=== PATIENT | male | born 1980 | race Caucasian/White ===

== ENCOUNTER 2017-11-02 23:37 | Emergency (ER) | payer SELFPAY ==
[2017-11-03] MEDS ORDERED: Clindamycin/D5W 600 mg/50 ml Premix Bag ONE (00:26)
[2017-11-03 00:57] LABS: #Basophils 0.1 thou/uL (0.0-0.2); #Eosinphils 0.1 thou/uL (0.0-0.7); #Lymphocytes 1.7 thou/uL (1.20-3.40); #Monocytes 0.8 thou/uL (0.11-0.59); #Neutrophils 6.2 thou/uL (1.40-6.50); %Basophils 0.6 % (0.0-1.0); %Eosinophils 1.4 % (0.0-10.0); %Lymphocytes 18.8 % (21.0-51.0); %Monocytes 8.6 % (0.0-10.0); %Neutrophils 70.7 % (42.0-75.0); Hemoglobin 16.5 g/dL (14.0-18.0); Mean Corpuscular HGB CONC 33.5 g/dL (32.0-36.0); Mean Corpuscular Hemoglobin 32.8 pg (27.0-31.0); Mean Corpuscular Volume 97.9 fl (80.0-94.0); Mean Platelet Volume 8.2 fL (7.4-10.4); Platelet Count 156 thou/uL (130-400); RBC Distribution Width 11.6 % (11.5-14.5); Red Blood Cell (RBC) Count 5.03 mill/uL (4.70-6.10); White Blood Cell (WBC) Count 8.8 thou/uL (4.8-10.8)
--- NOTE | 2017-11-03 10:48 | RAD ---
RIGHT HAND 3 VIEWS: Date 11/03/17 HISTORY: Right hand injury. Bite wound. FINDINGS: Soft tissue swelling about the ring finger is apparent. No acute fracture, dislocation, or radiopaque foreign bodies. IMPRESSION: Soft tissue swelling. No acute osseous abnormalities are demonstrated. POS: [facility]
== END 2017-11-03 01:48 | disposition home or self-care (01) ==
LOC: ERS 23:37
DX: S61.234A Puncture wound without foreign body of right ring finger without damage to nail, initial encounter (principal); L03.113 Cellulitis of right upper limb; E66.9 Obesity, unspecified; F17.210 Nicotine dependence, cigarettes, uncomplicated; W57.XXXA Bitten or stung by nonvenomous insect and other nonvenomous arthropods, initial encounter
CPT/HCPCS: 85025; 96374; J3490

== ENCOUNTER 2017-11-04 19:47 | Inpatient (IN) | payer OTHER, SELFPAY ==
[2017-11-04] MEDS ORDERED: HYDROcodone/Acetaminophen 5/325 mg Tablet ONE (21:49)
--- NOTE | 2017-11-04 21:58 | RAD ---
RIGHT HAND THREE VIEWS: 11/04/2017 HISTORY: Ring finger swelling. Spider bite on right hand. Open wound. FINDINGS: There is no evidence of a fracture, dislocation, or other osseous abnormality involving the right ghotra d. There is subcutaneous soft tissue swelling involving the right ring finger. There is no osseous destruction seen. IMPRESSION: Subcutaneous soft tissue swelling, right ring finger. No acute osseous abnormality is seen. If ther e is concern for osteomyelitis, MRI would be a more sensitive study of choice for evaluation. POS: [facility]
[2017-11-04 22:32] LABS: #Basophils 0.1 thou/uL (0.0-0.2); #Eosinphils 0.2 thou/uL (0.0-0.7); #Lymphocytes 1.2 thou/uL (1.20-3.40); #Monocytes 0.7 thou/uL (0.11-0.59); #Neutrophils 7.3 thou/uL (1.40-6.50); %Basophils 0.7 % (0.0-1.0); %Eosinophils 2.6 % (0.0-10.0); %Monocytes 7.4 % (0.0-10.0); %Neutrophils 76.4 % (42.0-75.0); Hemoglobin 14.2 g/dL (14.0-18.0); Mean Corpuscular HGB CONC 34.3 g/dL (32.0-36.0); Mean Corpuscular Hemoglobin 33.1 pg (27.0-31.0); Mean Corpuscular Volume 96.5 fl (80.0-94.0); Mean Platelet Volume 7.6 fL (7.4-10.4); Platelet Count 194 thou/uL (130-400); RBC Distribution Width 11.7 % (11.5-14.5); Red Blood Cell (RBC) Count 4.27 mill/uL (4.70-6.10); White Blood Cell (WBC) Count 9.5 thou/uL (4.8-10.8)
[2017-11-04 22:39] LABS: PTT 29.8 SEC (22.9-36.1); Prothrombin Time 12.8 SEC (12.0-14.7)
[2017-11-04 23:05] LABS: ALT (SGPT) 76 U/L (8-55); AST (SGOT) 101 U/L (5-34); Albumin 3.6 g/dL (3.5-5.0); Alkaline Phosphatase 125 U/L (40-150); Anion Gap 13 mmol/L (10-20); BUN (Urea Nitrogen) 12 mg/dL (8.9-20.6); Bilirubin, Total 0.4 mg/dL (0.2-1.2); CK (CPK) 1719 U/L (30-200); Calc. Creatinine Clearance 0 mL/min (70-130); Calcium 9.2 mg/dL (7.8-10.44); Carbon Dioxide 25 mmol/L (22-29); Chloride 104 mmol/L (98-107); Estimated GFR-MDRD Greater than 90; Globulin 2.8 g/dL (2.4-3.5); Glucose 95 mg/dL (70-105); Potassium 3.9 mmol/L (3.5-5.1); Protein, Total 6.4 g/dL (6.0-8.3); Sodium 138 mmol/L (136-145)
[2017-11-05] MEDS ORDERED: Piperacillin/Tazobactam 4.5 GM VIAL ONE (00:12)
[2017-11-05] MEDS ORDERED: Acetaminophen 325 MG TAB PO PRN (00:37)
[2017-11-05] MEDS ORDERED: Ondansetron HCl/PF 4 MG/2 ML Vial IVP PRN ×2 (00:37→21:56)
[2017-11-05] MEDS ORDERED: Ondansetron ODT 4 MG TAB SL PRN (00:37)
[2017-11-05 00:39] VITALS: BMI 24.1
[2017-11-05] MEDS ORDERED: Piperacillin/Tazobactam 4.5 GM in Sodium Chloride 0.9% 100 ML IVPB SCH (02:15)
[2017-11-05] MEDS: Dextrose 5 %-0.45 % NaCl 1,000 ML IV SCH ×2 (03:07→15:03)
[2017-11-05] MEDS: Ketorolac Tromethamine 30 MG/ML VIAL IVP PRN (14:08)
[2017-11-05] MEDS ORDERED: VANCOMYCIN/RENALLY ADJUST ABX IVPB PRN (16:37)
[2017-11-05] MEDS ORDERED: Vancomycin HCl 1 GM in Premix Bag 1 BAG IVPB SCH (16:45)
[2017-11-05] MEDS: traMADol HCl 50 MG TAB PO PRN ×2 (18:03→22:36)
[2017-11-05] MEDS: Vancomycin HCl 1.5 GM in Sodium Chloride 0.9% 250 ML 300 ML IVPB SCH (18:11)
[2017-11-05] MEDS: Sodium Chloride 0.9% 1,000 ML IV SCH ×2 (18:13→20:14)
[2017-11-05] MEDS: Piperacillin/Tazobactam 3.375 GM in Sodium Chloride 0.9% 100 ML IVPB SCH (20:14)
[2017-11-05] MEDS: Acetaminophen 325 MG TAB PO PRN (20:15)
[2017-11-05] MEDS ORDERED: Milk Of Magnesia 30 ML UDCUP PO PRN (21:56)
[2017-11-05] MEDS ORDERED: Calcium Carbonate 500 MG ChewTAB PO PRN (21:56)
[2017-11-05] MEDS ORDERED: Ondansetron ODT 4 MG TAB PO PRN (21:56)
[2017-11-05] MEDS ORDERED: Senokot 8.6 MG TAB PO PRN (21:56)
--- NOTE | 2017-11-05 21:56 | PDOC.PN ---
- Subjective Encounter Start Date: 11/05/17 Encounter Start Time: 14:00 Patient seen and examined. Consult for med mngt. No CP/SOB/fever. Has 10/10 pain in Rt hand. - Objective MAR Reviewed: Yes Vital Signs & Weight: Vital Signs (12 hours) Temp Pulse Resp BP Pulse Ox 11/05/17 20:00 98.9 F 99 16 109/70 97 11/05/17 15:32 98.3 F 78 16 115/70 99 11/05/17 11:42 98.5 F 80 14 103/66 98 Weight Weight 177 lb 14.609 oz I&O: 11/04/17 11/05/17 11/06/17 06:59 06:59 06:59 Intake Total 600 100 Output Total 800 Balance -200 100 Result Diagrams: 11/06/17 03:41 11/06/17 03:41 Phys Exam - Physical Examination Constitutional: NAD Respiratory: no wheezing, no rhonchi Cardiovascular: RRR, no rub Gastrointestinal: soft, non-tender, positive bowel sounds Musculoskeletal: no edema Rt hand dressing + Neurological: non-focal Psychiatric: A&O x 3 Dx/Plan - Plan DVT proph w/SCDs IMPRESSION: 1. Rt hand celulitis/abscess 2. Rhabdomyolysis 3. Tobacco dep 4. Cannabis abuse 5. Acute pain due to #1 PLAN: * Patient is allergic to Cefaclor - Tolerated Zosyn in ER. * Will cont Zosyn * Cont Vancomycin * AM labs * Cont IVF NS @ 125 ml/hr Review of Systems - Review of Systems Respiratory: negative: Cough, Dry, Shortness of Breath, Hemoptysis, SOB with Excertion, Pleuritic Pain, Sputum, Wheezing Cardiovascular: negative: chest pain, palpitations, orthopnea, paroxysmal nocturnal dyspnea, edema, light headedness, other Gastrointestinal: negative: Nausea, Vomiting, Abdominal Pain, Diarrhea, Constipation, Melena, Hematochezia, Other Genitourinary: negative: Dysuria, Frequency, Incontinence, Hematuria, Retention , Other - Medications/Allergies Allergies/Adverse Reactions: Allergies Allergy/AdvReac Type Severity Reaction Status Date / Time cefaclor [From [facility]] Allergy Severe Verified 11/05/17 06:52 Medications: Current Medications Acetaminophen (Tylenol) 650 mg PO Q4H PRN PRN Reason: Headache/Fever or Mild Pain Last Admin: 11/05/17 20:15 Dose: 650 mg Sodium Chloride (Normal Saline 0.9%) 1,000 mls @ 125 mls/hr IV .Q8H [facility]ARIEL Last Admin: 11/05/17 20:14 Dose: 1,000 mls Piperacillin Sod/Tazobactam (Sod 3.375 gm/ Sodium Chloride) 100 mls @ 200 mls/ hr IVPB 0200,0800,1400,2000 [facility] Last Admin: 11/05/17 20:14 Dose: 100 mls Vancomycin HCl 1.5 gm/ Sodium (Chloride) 300 mls @ 200 mls/hr IVPB 0200,1000, 1800 [facility] Last Admin: 11/05/17 18:11 Dose: 300 mls Ibuprofen (Motrin) 400 mg PO Q6H PRN PRN Reason: Mild Pain (1-3) Ketorolac Tromethamine (Toradol) 15 mg IVP Q6H PRN PRN Reason: Pain Stop: 11/10/17 02:05 Last Admin: 11/05/17 14:08 Dose: 15 mg Miscellaneous Medication (Pharmacy To Dose) 1 each IVPB PRN PRN PRN Reason: Pharmacy to dose Tramadol HCl (Ultram) 50 mg PO Q4H PRN PRN Reason: Moderate Pain (4-6) Last Admin: 11/05/17 18:03 Dose: 50 mg
[2017-11-06] MEDS: Vancomycin HCl 1.5 GM in Sodium Chloride 0.9% 250 ML 300 ML IVPB SCH ×3 (01:07→17:59)
[2017-11-06] MEDS: Piperacillin/Tazobactam 3.375 GM in Sodium Chloride 0.9% 100 ML IVPB SCH ×4 (01:07→20:48)
[2017-11-06] MEDS: Ketorolac Tromethamine 30 MG/ML VIAL IVP PRN ×2 (03:14→09:40)
[2017-11-06 04:03] LABS: #Eosinphils 0.2 thou/uL (0.0-0.7); #Lymphocytes 1.6 thou/uL (1.20-3.40); #Monocytes 0.6 thou/uL (0.11-0.59); #Neutrophils 3.7 thou/uL (1.40-6.50); %Basophils 0.7 % (0.0-1.0); %Eosinophils 2.9 % (0.0-10.0); %Lymphocytes 26.5 % (21.0-51.0); %Monocytes 9.3 % (0.0-10.0); %Neutrophils 60.7 % (42.0-75.0); Hemoglobin 13.3 g/dL (14.0-18.0); Mean Corpuscular HGB CONC 34.5 g/dL (32.0-36.0); Mean Corpuscular Hemoglobin 33.5 pg (27.0-31.0); Mean Corpuscular Volume 97.2 fl (80.0-94.0); Mean Platelet Volume 8.1 fL (7.4-10.4); Platelet Count 184 thou/uL (130-400); RBC Distribution Width 11.8 % (11.5-14.5); Red Blood Cell (RBC) Count 3.96 mill/uL (4.70-6.10); White Blood Cell (WBC) Count 6.2 thou/uL (4.8-10.8)
[2017-11-06 04:14] LABS: Anion Gap 7 mmol/L (10-20); BUN (Urea Nitrogen) 9 mg/dL (8.9-20.6); CK (CPK) 471 U/L (30-200); Calc. Creatinine Clearance 161 mL/min (70-130); Calcium 8.7 mg/dL (7.8-10.44); Carbon Dioxide 27 mmol/L (22-29); Chloride 108 mmol/L (98-107); Estimated GFR-MDRD Greater than 90; Glucose 90 mg/dL (70-105); Potassium 3.3 mmol/L (3.5-5.1); Sodium 139 mmol/L (136-145)
[2017-11-06] MEDS ORDERED: Potassium Chloride 20 MEQ TAB PO SCH (05:00)
[2017-11-06] MEDS: NS 0.9% w/ 20 MEQ KCL 1,000 ML/1,000 ML BAG IV SCH ×2 (05:30→18:01)
[2017-11-06] MEDS ORDERED: PROPOFOL 200 MG/20 ML VIAL ONE (13:38)
[2017-11-06] MEDS ORDERED: Dexamethasone 20 MG/5 ML VIAL ONE (13:38)
[2017-11-06] MEDS ORDERED: Lidocaine 1% PF 5 ML VIAL ONE (13:38)
[2017-11-06] MEDS ORDERED: diphenhydrAMINE 50 MG/ML VIAL ONE (13:38)
[2017-11-06] MEDS ORDERED: Midazolam HCl 2 mg/2 ml Vial ONE (13:45)
[2017-11-06] MEDS ORDERED: Fentanyl 100 MCG/2 ML VIAL ONE ×5 (13:46→17:32)
--- NOTE | 2017-11-06 14:27 | CON ---
DATE OF CONSULTATION: 11/06/2017 PROCEDURE: Right hand infection. HISTORY OF PRESENT ILLNESS: This is a 37-year-old with history of IV heroin and cocaine injection wh o developed area of inflammatory change at right hand ring finger at the dorsal aspect of the proxima l interphalangeal joint skin site which has been present for few days with some purulent drainage. T he patient has failed oral clindamycin for some reason he was incarcerated in the [facility], brought here for evaluation and admitted. Apparently, patient is going for surgical debridement soon. No headaches, visual symptoms, sore throat, odynophagia, dysphagia. No vomiting, hematemesis, melena, hematochezia. No back pain, no shortness of breath, cough or sputum production. No abdomin al pain or diarrhea. No genitourinary symptoms. Last time, patient injected IV drugs were day befor e admission. The patient claims that he always uses his own needle. No other hardware for injection . Does not share at least at this point in time. PAST MEDICAL HISTORY: Back pain intermittently, left knee surgery, lumbar disk repair. SOCIAL HISTORY: He is currently unemployed. He used to work at [employer]. Multi-substance dr ug use. Current smoker. FAMILY HISTORY: Noncontributory. ALLERGIES: CEFACLOR with rash. PHYSICAL EXAMINATION: VITAL SIGNS: T-max 98.9, blood pressure 116/63, pulse 75, respiration 16, O2 sat 98%. SKIN: Area of inflammatory change with swelling of the proximal phalanx skin site, right fourth digi t with an area of ulceration at the center in a circumferential distribution. The erythema extends t o the dorsal aspect of the right hand. Needle track lebron in the right antecubital fossa. No lympha denopathy. HEENT: Ocular movements conjugate. Numerous tattoos. Oral cavity normal. The patient has no nativ e teeth. NECK: Supple, no jugular vein distention or carotid bruits. LUNGS: Symmetric clear breath sounds. HEART: S1, S2, regular rate without murmurs. ABDOMEN: Soft, nondistended or tender. No ascites. No bladder distention. EXTREMITIES: No other joint inflammatory process noted. NEUROLOGIC: Nonfocal. LABORATORY DATA AND IMAGING DATA: White cell count 9.5 and 6.2, hemoglobin 14 and 13, platelets 184, normal differential. At this time on admission, his neutrophil percentage is 76.4. INR 1.0. Sodiu m 138, creatinine 0.68, AST 101, ALT 76, CK 17-19, albumin 3.6. One set of blood cultures Staphyloco ccus species. We do not have any VERIGENE identification yet. No chest x-ray was done ASSESSMENT: 1. IV drug use with recent activity. 2. Right hand inflammatory process with abscess, may have tenosynovitis or infective arthritis of ei ther MPJ or the proximal interphalangeal joint, right fourth digit. 3. Positive blood cultures. DISCUSSION: The most likely scenario is Staphylococcus aureus infection, may have developed bacterem ia, endocarditis needs to be considered. We will check echocardiogram, hepatitis C, HIV serology. W ait on the results of the surgical debridement and then plan long-term therapy. If blood cultures re main negative, echocardiogram normal and there is no evidence of tenosynovitis or septic arthritis/os teomyelitis in the surgical debridement, then plan conversion to oral antimicrobial therapy, otherwis e we will need protracted IV antimicrobial therapy.
[2017-11-06] MEDS ORDERED: Lidocaine 1% (PF) 30 ML VIAL ONE (14:55)
[2017-11-06] MEDS ORDERED: Bupivacaine PF 0.5% 30 ML VIAL ONE (15:06)
[2017-11-06] MEDS ORDERED: Piperacillin/Tazobactam 3.375 GM VIAL ONE (15:17)
[2017-11-06 15:56] LABS: HIV (1/2) Antibody/Antigen Non-Reactive (NonReactive); HIV 1/2 INDEX 0.12 S/CO (<1.00); Hep C IgG Ab Non-Reactive (NonReactive); Hep C Index 0.33 S/CO (0-0.79)
[2017-11-06] MEDS ORDERED: Ondansetron HCl/PF 4 MG/2 ML Vial IVP PRN (16:14)
[2017-11-06] MEDS ORDERED: Acetaminophen/Codeine 30-300mg Tablet PO PRN (16:14)
[2017-11-06] MEDS ORDERED: Promethazine HCl 25 MG/ML VIAL IM PRN (16:14)
[2017-11-06] MEDS ORDERED: Promethazine HCl 25 MG/ML VIAL SLOW IVP PRN (16:14)
[2017-11-06] MEDS: Acetaminophen/Codeine 30-300mg Tablet PO PRN ×2 (18:01→22:22)
--- NOTE | 2017-11-06 18:01 | PDOC.PN ---
- Subjective Encounter Start Date: 11/06/17 Encounter Start Time: 08:30 Patient seen and examined. No new complaints. No overnight events. NPO. Rt hand pain + - Objective MAR Reviewed: Yes Vital Signs & Weight: Vital Signs (12 hours) Temp Pulse Resp BP Pulse Ox 11/06/17 08:00 98.5 F 75 16 116/63 98 Weight Weight 177 lb 14.609 oz I&O: 11/05/17 11/06/17 11/07/17 06:59 06:59 06:59 Intake Total 600 2405.50 Output Total 800 Balance -200 2405.50 Result Diagrams: 11/07/17 10:16 11/07/17 11:59 Phys Exam - Physical Examination Constitutional: NAD Respiratory: no wheezing, no rhonchi Cardiovascular: RRR, no rub Gastrointestinal: soft, non-tender, positive bowel sounds Musculoskeletal: no edema No significant change Neurological: moves all 4 limbs Dx/Plan - Plan DVT proph w/SCDs IMPRESSION: 1. Rt hand cellulitis/abscess with Staph Bacteremia 2. Rhabdomyolysis - CK improving 3. Tobacco dep 4. Cannabis abuse 5. Hypokalemia PLAN: * Cont Vancomycin/Zosyn * AM labs * Cont IVF NS @ 75 ml/hr * Replace Potassium * Consult ID due to bacteremia * NPO for surgery today Review of Systems - Review of Systems Respiratory: negative: Cough, Dry, Shortness of Breath, Hemoptysis, SOB with Excertion, Pleuritic Pain, Sputum, Wheezing Cardiovascular: negative: chest pain, palpitations, orthopnea, paroxysmal nocturnal dyspnea, edema, light headedness, other Gastrointestinal: negative: Nausea, Vomiting, Abdominal Pain, Diarrhea, Constipation, Melena, Hematochezia, Other - Medications/Allergies Allergies/Adverse Reactions: Allergies Allergy/AdvReac Type Severity Reaction Status Date / Time cefaclor [From [facility]] Allergy Severe Verified 11/05/17 06:52 Medications: Current Medications Acetaminophen (Tylenol) 650 mg PO Q4H PRN PRN Reason: Headache/Fever or Mild Pain Last Admin: 11/05/17 20:15 Dose: 650 mg Acetaminophen/Codeine Phosphate (Tylenol #3) 1 tab PO Q4H PRN PRN Reason: Moderate Pain (4-6) Acetaminophen/Codeine Phosphate (Tylenol #3) 2 tab PO Q4H PRN PRN Reason: Pain Calcium Carbonate (Tums) 1,000 mg PO Q4H PRN PRN Reason: Heartburn or Indigestion Fentanyl (Pacu-Sublimaze) 50 mcg SLOW IVP Q10MIN PRN PRN Reason: Moderate to Severe Pain (6-10) Stop: 11/06/17 19:14 Piperacillin Sod/Tazobactam (Sod 3.375 gm/ Sodium Chloride) 100 mls @ 200 mls/ hr IVPB 0200,0800,1400,2000 [facility] Last Admin: 11/06/17 14:04 Dose: Not Given Vancomycin HCl 1.5 gm/ Sodium (Chloride) 300 mls @ 200 mls/hr IVPB 0200,1000, 1800 [facility] Last Admin: 11/06/17 09:39 Dose: 300 mls Potassium Chloride/Sodium Chloride (Ns 0.9% W/ 20 Meq Kcl) 1,000 ml in 1,000 mls @ 75 mls/hr IV .[id number] [facility] Last Admin: 11/06/17 05:30 Dose: 1,000 mls Ibuprofen (Motrin) 400 mg PO Q6H PRN PRN Reason: Mild Pain (1-3) Ketorolac Tromethamine (Toradol) 15 mg IVP Q6H PRN PRN Reason: Pain Stop: 11/10/17 02:05 Last Admin: 11/06/17 09:40 Dose: 15 mg Magnesium Hydroxide (Milk Of Magnesium) 30 ml PO DAILYPRN PRN PRN Reason: Constipation Miscellaneous Medication (Pharmacy To Dose) 1 each IVPB PRN PRN PRN Reason: Pharmacy to dose Ondansetron HCl (Zofran Odt) 4 mg PO Q6H PRN PRN Reason: Nausea/Vomiting Ondansetron HCl (Zofran) 4 mg IVP Q6H PRN PRN Reason: Nausea/Vomiting Ondansetron HCl (Pacu-Zofran) 4 mg IVP ONE PRN PRN Reason: Nausea/Vomiting Stop: 11/06/17 19:14 Promethazine HCl (Pacu-Phenergan) 6.25 mg SLOW IVP ONE PRN PRN Reason: Nausea/Vomiting Stop: 11/06/17 19:14 Promethazine HCl (Pacu-Phenergan) 6.25 mg IM ONE PRN PRN Reason: Nausea/Vomiting Stop: 11/06/17 19:14 Senna (Senokot) 2 tab PO HSPRN PRN PRN Reason: Constipation Sodium Chloride (Flush - Normal Saline) 10 ml IVF Q12HR YARIEL Last Admin: 11/06/17 08:50 Dose: Not Given Sodium Chloride (Flush - Normal Saline) 10 ml IVF PRN PRN PRN Reason: Saline Flush Tramadol HCl (Ultram) 50 mg PO Q4H PRN PRN Reason: Moderate Pain (4-6) Last Admin: 11/05/17 22:36 Dose: 50 mg
[2017-11-07] MEDS: Vancomycin HCl 1.5 GM in Sodium Chloride 0.9% 250 ML 300 ML IVPB SCH ×2 (01:25→17:42)
[2017-11-07] MEDS: Piperacillin/Tazobactam 3.375 GM in Sodium Chloride 0.9% 100 ML IVPB SCH ×4 (01:25→20:16)
[2017-11-07 02:19] LABS: Vancomycin, Trough 27.6 ug/mL
[2017-11-07 02:23] LABS: Anion Gap 14 mmol/L (10-20); BUN (Urea Nitrogen) 16 mg/dL (8.9-20.6); Calc. Creatinine Clearance 94 mL/min (70-130); Calcium 8.3 mg/dL (7.8-10.44); Carbon Dioxide 19 mmol/L (22-29); Chloride 110 mmol/L (98-107); Estimated GFR-MDRD 66; Glucose 109 mg/dL (70-105); Potassium 6.2 mmol/L (3.5-5.1); Sodium 137 mmol/L (136-145)
[2017-11-07] MEDS: Acetaminophen/Codeine 30-300mg Tablet PO PRN ×4 (02:23→15:05)
[2017-11-07] MEDS: NS 0.9% w/ 20 MEQ KCL 1,000 ML/1,000 ML BAG IV SCH (06:31)
[2017-11-07] MEDS: Multivit, Therapeutic 1 TAB PO SCH (08:51)
[2017-11-07 10:41] LABS: #Eosinphils 0.1 thou/uL (0.0-0.7); #Lymphocytes 1.6 thou/uL (1.20-3.40); #Monocytes 0.9 thou/uL (0.11-0.59); #Neutrophils 8.4 thou/uL (1.40-6.50); %Basophils 0.1 % (0.0-1.0); %Eosinophils 0.8 % (0.0-10.0); %Lymphocytes 14.5 % (21.0-51.0); %Monocytes 8.3 % (0.0-10.0); %Neutrophils 76.2 % (42.0-75.0); Hemoglobin 13.6 g/dL (14.0-18.0); Mean Corpuscular HGB CONC 34.1 g/dL (32.0-36.0); Mean Corpuscular Hemoglobin 32.7 pg (27.0-31.0); Mean Corpuscular Volume 95.9 fl (80.0-94.0); Mean Platelet Volume 8.1 fL (7.4-10.4); Platelet Count 186 thou/uL (130-400); RBC Distribution Width 11.8 % (11.5-14.5); Red Blood Cell (RBC) Count 4.15 mill/uL (4.70-6.10)
[2017-11-07] MEDS ORDERED: Sodium Chloride 0.9% 1,000 ML IV SCH (10:45)
[2017-11-07 10:59] LABS: RBC Morphology Normal
--- NOTE | 2017-11-07 11:45 | OP ---
DATE OF PROCEDURE: 11/06/2017. PREOPERATIVE DIAGNOSIS: Infected right ring finger, dorsal. POSTOPERATIVE DIAGNOSIS: Infected right ring finger, dorsal. SURGICAL PROCEDURE: Incision and drainage of right ring finger, dorsal. ANESTHESIA: General. SURGEON: Jose Galan M.D. MAT INSPECTOR: Duncan Balderas PA-C. TOURNIQUET TIME: Zero. ESTIMATED BLOOD LOSS: Approximately 20 mL SPECIMEN: Swab sent for Gram stain, culture and sensitivity. COMPLICATIONS: None. DRAINS: None. IMPLANTS: None. INDICATIONS: The patient is a 37-year-old inmate who presents with a 72-hour history of right dorsal ring finger pain, swelling, and redness. The patient has been on IV antibiotics and the cellulitic response has responded nicely; however, he still has a small open lesion at the level of the proximal phalanx dorsally where he feels as though he may have had a spider bite. There has been some mild d rainage from this site and given the fact that it is still mildly reddened in this area and still frances nful, I would now like to proceed with an incision and drainage procedure and also to obtain cultures . Informed consent has been obtained. I believe all questions answered. DESCRIPTION OF PROCEDURE: The patient was brought to the operating room and a timeout performed foll owed by induction of general anesthesia. Next, the ring finger was inspected and there was found to be a 4 mm round area of mildly necrotic skin. This was sharply excised including skin and subcutaneo us tissue using a scalpel. Once excised, some subcutaneous fat was further debrided using a small ro ngeur. It should be noted that there was some serous fluid below the surface of the skin at this lev el, but no purulent discharge was encountered. Next, a swab was introduced into the wound to be sent for Gram stain culture and sensitivity. Next, open wound was irrigated with a liter of normal salin e using bulb syringe and then packed with an iodoform gauze and gauze then further wrapped over the f elias and then patient was transferred to recovery room in stable condition. There were no complicat ions and the patient tolerated the procedure well.
[2017-11-07 12:29] LABS: Anion Gap 15 mmol/L (10-20); BUN (Urea Nitrogen) 16 mg/dL (8.9-20.6); Calc. Creatinine Clearance 86 mL/min (70-130); Calcium 8.3 mg/dL (7.8-10.44); Carbon Dioxide 15 mmol/L (22-29); Chloride 114 mmol/L (98-107); Estimated GFR-MDRD 59; Glucose 115 mg/dL (70-105); Potassium 4.5 mmol/L (3.5-5.1); Sodium 139 mmol/L (136-145)
--- NOTE | 2017-11-07 16:37 | PDOC.PN ---
- Subjective Encounter Start Date: 11/07/17 Encounter Start Time: 16:34 Patient seen and examined. No new complaints. No overnight events - Objective MAR Reviewed: Yes Vital Signs & Weight: Vital Signs (12 hours) Temp Pulse Resp BP Pulse Ox 11/07/17 15:38 98.9 F 46 L 16 113/69 99 11/07/17 08:07 98.6 F 46 L 20 124/79 100 11/07/17 07:00 98.6 F 46 L 20 Weight Admit Weight 177 lb 14.609 oz Weight 177 lb 14.609 oz I&O: 11/06/17 11/07/17 11/08/17 06:59 06:59 06:59 Intake Total 2405.50 523 Balance 2405.50 523 Result Diagrams: 11/07/17 10:16 11/08/17 06:30 Phys Exam - Physical Examination Constitutional: NAD Respiratory: no wheezing, no rhonchi Cardiovascular: RRR, no rub Gastrointestinal: soft, non-tender, positive bowel sounds Musculoskeletal: no edema Dressing over the Rt hand Neurological: moves all 4 limbs Dx/Plan - Plan DVT proph w/SCDs IMPRESSION: 1. Rt hand cellulitis/abscess with CN Staph Bacteremia 1/2 - s/o I&D 2. Rhabdomyolysis - CK improving 3. Tobacco dep 4. Cannabis abuse 5. Hypokalemia PLAN: * Cont Vancomycin/Zosyn * AM labs * Hyperkalemia today was due to lab error - repeat * ID input appreciated * Cipro/Clindamycin at dc if cultures negative per ID Review of Systems - Review of Systems Respiratory: negative: Cough, Dry, Shortness of Breath, Hemoptysis, SOB with Excertion, Pleuritic Pain, Sputum, Wheezing Cardiovascular: negative: chest pain, palpitations, orthopnea, paroxysmal nocturnal dyspnea, edema, light headedness, other Gastrointestinal: negative: Nausea, Vomiting, Abdominal Pain, Diarrhea, Constipation, Melena, Hematochezia, Other - Medications/Allergies Allergies/Adverse Reactions: Allergies Allergy/AdvReac Type Severity Reaction Status Date / Time cefaclor [From [facility]] Allergy Severe Verified 11/05/17 06:52 Medications: Current Medications Acetaminophen (Tylenol) 650 mg PO Q4H PRN PRN Reason: Headache/Fever or Mild Pain Last Admin: 11/05/17 20:15 Dose: 650 mg Acetaminophen/Codeine Phosphate (Tylenol #3) 1 tab PO Q4H PRN PRN Reason: Moderate Pain (4-6) Acetaminophen/Codeine Phosphate (Tylenol #3) 2 tab PO Q4H PRN PRN Reason: Pain Last Admin: 11/07/17 15:05 Dose: 2 tab Calcium Carbonate (Tums) 1,000 mg PO Q4H PRN PRN Reason: Heartburn or Indigestion Piperacillin Sod/Tazobactam (Sod 3.375 gm/ Sodium Chloride) 100 mls @ 200 mls/ hr IVPB 0200,0800,1400,2000 [facility] Last Admin: 11/07/17 14:32 Dose: 100 mls Vancomycin HCl 1.5 gm/ Sodium (Chloride) 300 mls @ 200 mls/hr IVPB 0600,1800 YARIEL Sodium Chloride (Normal Saline 0.9%) 1,000 mls @ 70 mls/hr IV .[id number] [facility] Stop: 11/07/17 23:59 Last Admin: 11/07/17 10:49 Dose: 1,000 mls Ibuprofen (Motrin) 400 mg PO Q6H PRN PRN Reason: Mild Pain (1-3) Ketorolac Tromethamine (Toradol) 15 mg IVP Q6H PRN PRN Reason: Pain Stop: 11/10/17 02:05 Last Admin: 11/06/17 09:40 Dose: 15 mg Magnesium Hydroxide (Milk Of Magnesium) 30 ml PO DAILYPRN PRN PRN Reason: Constipation Miscellaneous Medication (Pharmacy To Dose) 1 each IVPB PRN PRN PRN Reason: Pharmacy to dose Multivitamins (Theragran) 1 tab PO DAILY [facility] Last Admin: 11/07/17 08:51 Dose: 1 tab Ondansetron HCl (Zofran Odt) 4 mg PO Q6H PRN PRN Reason: Nausea/Vomiting Ondansetron HCl (Zofran) 4 mg IVP Q6H PRN PRN Reason: Nausea/Vomiting Senna (Senokot) 2 tab PO HSPRN PRN PRN Reason: Constipation Sodium Chloride (Flush - Normal Saline) 10 ml IVF Q12HR [facility] Last Admin: 11/07/17 08:51 Dose: Not Given Sodium Chloride (Flush - Normal Saline) 10 ml IVF PRN PRN PRN Reason: Saline Flush Tramadol HCl (Ultram) 50 mg PO Q4H PRN PRN Reason: Moderate Pain (4-6) Last Admin: 11/05/17 22:36 Dose: 50 mg
[2017-11-07] MEDS: Ketorolac Tromethamine 30 MG/ML VIAL IVP PRN (20:12)
[2017-11-07] MEDS: traMADol HCl 50 MG TAB PO PRN (20:13)
[2017-11-07] MEDS: Acetaminophen 325 MG TAB PO PRN (20:13)
[2017-11-08] MEDS: Piperacillin/Tazobactam 3.375 GM in Sodium Chloride 0.9% 100 ML IVPB SCH ×2 (02:00→08:38)
[2017-11-08] MEDS: Vancomycin HCl 1.5 GM in Sodium Chloride 0.9% 250 ML 300 ML IVPB SCH ×3 (05:42→19:28)
[2017-11-08] MEDS: Acetaminophen 325 MG TAB PO PRN (06:47)
[2017-11-08] MEDS: Ketorolac Tromethamine 30 MG/ML VIAL IVP PRN (06:47)
[2017-11-08 08:10] LABS: Anion Gap 11 mmol/L (10-20); BUN (Urea Nitrogen) 16 mg/dL (8.9-20.6); CK (CPK) 109 U/L (30-200); Calc. Creatinine Clearance 77 mL/min (70-130); Calcium 8.2 mg/dL (7.8-10.44); Carbon Dioxide 23 mmol/L (22-29); Chloride 111 mmol/L (98-107); Estimated GFR-MDRD 52; Glucose 88 mg/dL (70-105); Potassium 3.9 mmol/L (3.5-5.1); Sodium 141 mmol/L (136-145)
[2017-11-08] MEDS: Multivit, Therapeutic 1 TAB PO SCH (08:40)
[2017-11-08] MEDS ORDERED: Fentanyl 100 MCG/2 ML VIAL SLOW IVP PRN (08:43)
[2017-11-08] MEDS: traMADol HCl 50 MG TAB PO PRN (08:54)
[2017-11-08] MEDS ORDERED: Dextrose 5 %-0.45 % NaCl 1,000 ML IV SCH (09:30)
[2017-11-08] MEDS: Acetaminophen/Codeine 30-300mg Tablet PO PRN ×3 (11:08→19:27)
--- NOTE | 2017-11-08 14:54 | PDOC.PN ---
- Subjective Encounter Start Date: 11/08/17 Encounter Start Time: 14:52 Patient seen and examined. No new complaints. No overnight events. - Objective MAR Reviewed: Yes Vital Signs & Weight: Vital Signs (12 hours) Temp Pulse Resp BP Pulse Ox 11/08/17 11:29 98.2 F 51 L 20 123/73 100 11/08/17 08:00 98.2 F 51 L 20 18 L 11/08/17 07:19 98 F 54 L 18 114/74 98 11/08/17 05:03 99.1 F 68 16 133/87 97 Weight Admit Weight 177 lb 14.609 oz Weight 177 lb 14.609 oz I&O: 11/07/17 11/08/17 11/09/17 06:59 06:59 06:59 Intake Total 523 4750 Balance 523 4750 Result Diagrams: 11/07/17 10:16 11/08/17 06:30 Phys Exam - Physical Examination Constitutional: NAD Respiratory: no wheezing, no rhonchi Cardiovascular: RRR, no rub Gastrointestinal: soft, non-tender, positive bowel sounds Musculoskeletal: no edema Dx/Plan - Plan DVT proph w/SCDs IMPRESSION: 1. Rt hand cellulitis/abscess with CN Staph Bacteremia / - s/p I&D 2. MELODY - multifactorial. worsening (new problem) 3. Tobacco dep 4. Cannabis abuse 5. Hypokalemia/Rhabdomyolysis PLAN: * Start IVF * Cont Vancomycin * AM labs * Await cultures * ID input appreciated * Atbx based on cultures * DC Toradol due to MELODY * Check urinalysis Microbiology 11/04/17 22:07 Venous blood - Left Arm Blood Culture - Final Coagulase Neg Staphylococcus 11/06/17 15:48 Finger - Tissue Bacterial Culture - Preliminary 11/06/17 15:48 Finger - Tissue Staphylococcus aureus 11/06/17 15:48 Finger - Swab Bacterial Culture - Preliminary 11/06/17 15:48 Finger - Swab Staphylococcus aureus 11/04/17 22:07 Venous blood - Left Arm Blood Culture - Preliminary Staphylococcus species 11/04/17 21:44 Venous blood - Right Foot Blood Culture - Preliminary Specimen has been received and culture in progress. No Growth to date. 11/04/17 21:44 Venous blood - Right Foot Blood Culture - Preliminary NO GROWTH AT 48 HOURS Laboratory Tests 11/04/17 11/06/1711/07/18 22:26 03:41 01:37 Creatinine 0.73 1.25 Creatine Kinase 1719 H 471 H 11/07/17 11/08/17 11:59 06:30 Creatinine 1.37 H 1.52 H Creatine Kinase 109 Review of Systems - Review of Systems Cardiovascular: negative: chest pain, palpitations, orthopnea, paroxysmal nocturnal dyspnea, edema, light headedness, other Gastrointestinal: negative: Nausea, Vomiting, Abdominal Pain, Diarrhea, Constipation, Melena, Hematochezia, Other - Medications/Allergies Allergies/Adverse Reactions: Allergies Allergy/AdvReac Type Severity Reaction Status Date / Time [facility] Allergy Severe Verified 11/05/17 06:52 Medications: Current Medications Acetaminophen (Tylenol) 650 mg PO Q4H PRN PRN Reason: Headache/Fever or Mild Pain Last Admin: 11/08/17 06:47 Dose: 650 mg Acetaminophen/Codeine Phosphate (Tylenol #3) 1 tab PO Q4H PRN PRN Reason: Moderate Pain (4-6) Last Admin: 11/08/17 00:40 Dose: 1 tab Acetaminophen/Codeine Phosphate (Tylenol #3) 2 tab PO Q4H PRN PRN Reason: Pain Last Admin: 11/08/17 11:08 Dose: 2 tab Calcium Carbonate (Tums) 1,000 mg PO Q4H PRN PRN Reason: Heartburn or Indigestion Vancomycin HCl 1.5 gm/ Sodium (Chloride) 300 mls @ 200 mls/hr IVPB 0600,1800 [facility] Last Admin: 11/08/17 05:45 Dose: 300 mls Dextrose/Sodium Chloride (D5 1/2 Ns) 1,000 mls @ 75 mls/hr IV .[id number] [facility] Last Admin: 11/08/17 11:10 Dose: 1,000 mls Ibuprofen (Motrin) 400 mg PO Q6H PRN PRN Reason: Mild Pain (1-3) Magnesium Hydroxide (Milk Of Magnesium) 30 ml PO DAILYPRN PRN PRN Reason: Constipation Miscellaneous Medication (Pharmacy To Dose) 1 each IVPB PRN PRN PRN Reason: Pharmacy to dose Multivitamins (Theragran) 1 tab PO DAILY [facility] Last Admin: 11/08/17 08:40 Dose: 1 tab Ondansetron HCl (Zofran Odt) 4 mg PO Q6H PRN PRN Reason: Nausea/Vomiting Ondansetron HCl (Zofran) 4 mg IVP Q6H PRN PRN Reason: Nausea/Vomiting Senna (Senokot) 2 tab PO HSPRN PRN PRN Reason: Constipation Sodium Chloride (Flush - Normal Saline) 10 ml IVF Q12HR [facility] Last Admin: 11/08/17 08:41 Dose: Not Given Sodium Chloride (Flush - Normal Saline) 10 ml IVF PRN PRN PRN Reason: Saline Flush Last Admin: 11/08/17 06:48 Dose: 10 ml Tramadol HCl (Ultram) 50 mg PO Q4H PRN PRN Reason: Moderate Pain (4-6) Last Admin: 11/08/17 08:54 Dose: 50 mg
[2017-11-08] MEDS: Dextrose 5 %-0.45 % NaCl 1,000 ML IV SCH ×2 (15:15→22:00)
--- NOTE | 2017-11-08 18:04 | PRG ---
DATE OF SERVICE: 11/08/2017 SUBJECTIVE: Feeling about the same. No respiratory symptoms, no abdominal pain or diarrhea. Mild r ight hand pain. OBJECTIVE: VITAL SIGNS: Normal. LUNGS: Clear. HEART: S1, S2, regular rate. ABDOMEN: Soft. EXTREMITIES: Right hand wound dressing not removed. LABORATORY DATA: White cell count 11,000, hemoglobin 13, platelets 186. Sodium 141, creatinine 1.52 , glucose 88. HIV, hepatitis C serology negative. ASSESSMENT AND DISCUSSION: IV drug use with recent activity, right hand inflammatory process with ab scess, status post I and D with no evidence of deep involvement. Blood culture positive for coagulas e negative, most likely contaminant. The patient to wait until tomorrow to see about his organism and susceptibility profile to allow disc harge planning on oral antimicrobial therapy for another 2 weeks. Kidney function has deteriorated m ost likely due to TORADOL as discussed by Dr. Ace.
[2017-11-08 19:55] LABS: Bilirubin Negative (Negative); Blood, Urine Negative (Negative); Clarity CLEAR (Clear); Glucose, Urine (Dipstick) Negative (Negative); Leukocyte Negative (Negative); Nitrite Negative (Negative); Protein, Urine (Dipstick) Negative (Neg-Trace); Urobilinogen 0.2 mg/dL (0.2-1.0)
[2017-11-08 20:00] LABS: Bacteria/HPF None Seen HPF (None Seen); Hyaline Casts/LPF 0-3 HYALINE CAST LPF (0-3 Hyaline); Pathc Cast-AUWi Flag 0.14 (0-2.49); RBC/HPF 0-3 HPF (0-3); Squamous Epithelial 0-3 HPF (0-3); WBC/HPF 0-3 HPF (0-3)
[2017-11-09] MEDS: Acetaminophen/Codeine 30-300mg Tablet PO PRN ×4 (00:11→13:15)
[2017-11-09] MEDS: Dextrose 5 %-0.45 % NaCl 1,000 ML IV SCH ×2 (05:28→12:20)
[2017-11-09] MEDS: Vancomycin HCl 1.5 GM in Sodium Chloride 0.9% 250 ML 300 ML IVPB SCH (05:29)
[2017-11-09 05:49] LABS: Vancomycin, Trough 23.9 ug/mL
[2017-11-09 05:51] LABS: Anion Gap 12 mmol/L (10-20); BUN (Urea Nitrogen) 14 mg/dL (8.9-20.6); Calc. Creatinine Clearance 90 mL/min (70-130); Calcium 8.1 mg/dL (7.8-10.44); Carbon Dioxide 20 mmol/L (22-29); Chloride 110 mmol/L (98-107); Estimated GFR-MDRD 62; Glucose 103 mg/dL (70-105); Potassium 4.5 mmol/L (3.5-5.1); Sodium 137 mmol/L (136-145)
[2017-11-09] MEDS: Multivit, Therapeutic 1 TAB PO SCH (09:18)
[2017-11-09] MEDS ORDERED: Fentanyl 100 MCG/2 ML VIAL SLOW IVP SCH (09:45)
--- NOTE | 2017-11-09 10:43 | PQF ---
DATE: 11-09-17 ATTN: DR. WALESKA GELLER Please exercise your independent, professional judgment in responding to the clarification form. Clinical indicators are provided on the bottom of this form for your review Please check appropriate box(s): [ ] Excisional Debridement: [ ] Excised [ ] Cut away [ ] Other: Depth / layer: (deepest layer of debridement): [ ] Skin[ ] SubQ Tissue [ ] Fascia [ ] Muscle [ ] Tendon [ ] Bone Appearance of wound: (e.g., down to fresh bleeding tissue, etc.)___ Margins: (please specify): / x x Instruments used: [ ] Scissors [ ] Scalpel [ ] Curette [ ] Soft tissue clipper [ ] Other: [ ] Non-excisional Debridement: (Removal by flushing, brushing, chemical, or washing) Depth / layer: (deepest layer of debridement): [ ] Skin[ ] Subcutaneous [ ] Fascia [ ] Muscle [ ] Tendon [ ] Bone [ ] Incision and Drainage only (No Debridement): Depth:[ ] Skin [ ] Subcutaneous [ ] Fascia [ ] Muscle [ ] Tendon [ ] Bone [ ] Escharectomy [ ] Other procedure diagnosis [ ] Unable to determine For continuity of documentation, please document condition throughout progress notes and discharge summary. Thank You. CLINICAL INDICATORS - SIGNS / SYMPTOMS / LABS EDWIGE CONSULT 11-06-17: HX OF IV HEROIN AND COCAINE INJECTION WHO DEVELOPED AREA OF INFLAMMATORY CHANGE AT RIGHT HAND RING FINGER AT THE DORSAL ASPECT OF THE PROXIMAL INTERPHALANGEAL JOINT SKIN SITE, APPARENTLY, THE PATIENT IS GOING FOR SURGICAL DEBRIDEMENT SOON. PROCEDURE 11-06-17: INCISION AND DRAINAGE OF RIGHT RING FINGER, DORSAL. PROCEDURE: 11-06-17: 4MM ROUND AREA OF MILDLY NECROTIC SKIN. THIS WAS SHARPLY EXCISED INCLUDING SKIN AND SUBCUTANEOUS TISSUE USING A SCALPEL. ONCE EXCISED, SOME SUBCUTANEOUS FAT WAS FURTHER DEBRIDED USING A SMALL RONGEUR. RISK FACTORS: CONSULT 11-06-17: HX OF IV HEROIN AND COCAINE INJECTION WHO DEVELOPED AREA OF INFLAMMATORY CHANGE AT RIGHT HAND RING FINGER AT THE DORSAL ASPECT OF THE PROXIMAL INTERPHALANGEAL JOINT SKIN SITE TREATMENTS: PROCEDURE 11-06-17: INCISION AND DRAINAGE OF RIGHT RING FINGER , DORSAL. (This form is maintained as a part of the permanent medical record) 2014 [email or web address]. All Rights Reserved PAT [email or web address] Office: [phone] [facility]
[2017-11-09 13:18] VITALS: BP 116/73; TEMP 98.4
[2017-11-09] MEDS ORDERED: Vancomycin HCl 1 GM in Premix Bag 1 BAG IVPB SCH (18:00)
[2017-11-10] MEDS ORDERED: Ibuprofen 200 MG TAB PO PRN (08:00)
--- NOTE | 2017-11-10 11:27 | DIS ---
DISCHARGE DATE: 11/09/2017 DISCHARGE DISPOSITION: The patient is inmate. The patient was seen and examined on the day of discharge. Denies any new complaints. DISCHARGE MEDICATIONS: 1. Doxycycline 100 mg twice a day for 2 weeks. 2. Rifampin 300 mg twice a day for next 2 weeks. 3. Other home medications were resumed. INPATIENT CONSULTANTS: Infectious Disease, Dr. Coughlin, and Orthopedic Surgery, Dr. Santos. BRIEF HOSPITAL COURSE: The patient is a 37-year-old male who was admitted under Orthopedic Service w ith right hand cellulitis and abscess. Hospitalist team was consulted for medical management. The p marilu underwent incision and drainage of the right ring finger on 11/06/2017. His cultures from the wound were consistent with MRSA sensitive to rifampin and doxycycline. His blood culture 1 of 2 jeffrey wed coagulase-negative Staphylococcus. An echocardiogram was performed per Infectious Disease's osmin mmendation that was negative for vegetations. The patient has been cleared by Orthopedic for dischar ge. FINAL DIAGNOSES: 1. Right hand cellulitis/abscess with coagulase-negative bacteremia, status post incision and draina ge. 2. Acute kidney injury probably secondary to #1. His maximum creatinine was 1.52 at discharge 1.31. Repeat base met after 1 week is recommended. 3. Rhabdomyolysis with CK of 1719 on admission and 109 at discharge. 4. Tobacco dependence, the patient was counseled. 5. Cannabis abuse, the patient was counseled. 6. Hypokalemia, corrected. Plan of care was discussed with the patient, he stated understanding. Please note that history and physical will be dictated by Orthopedic Team.
--- NOTE | 2017-11-12 09:55 | PQF ---
CHRIST VIRGEN ANTHONY, MD [id number] SURG B- [id number] CLINICAL DOCUMENTATION IMPROVEMENT CLARIFICATION FORM: ICD-10 Updated PLEASE DO AN ADDENDUM TO THE PROGRESS NOTE WITH ANY DOCUMENTATION UPDATES OR ADDITIONS AND CARRY THROUGH TO DC SUMMARY. THANK YOU. DATE: 11-09-17 ATTN: DR. WALESKA GELLER Please exercise your independent, professional judgment in responding to the clarification form. Clinical indicators are provided on the bottom of this form for your review Please check appropriate box(s): [ ] Excisional Debridement: [ ] Excised [ ] Cut away [ ] Other: Depth / layer: (deepest layer of debridement): [ ] Skin[ ] SubQ Tissue [ ] Fascia [ ] Muscle [ ] Tendon [ ] Bone Appearance of wound: (e.g., down to fresh bleeding tissue, etc.) Margins: (please specify): / x x Instruments used: [ ] Scissors [ ] Scalpel [ ] Curette [ ] Soft tissue clipper [ ] Other: [ ] Non-excisional Debridement: (Removal by flushing, brushing, chemical, or washing) Depth / layer: (deepest layer of debridement): [ ] Skin[ ] Subcutaneous [ ] Fascia [ ] Muscle [ ] Tendon [ ] Bone [ ] Incision and Drainage only (No Debridement): Depth:[ ] Skin [ ] Subcutaneous [ ] Fascia [ ] Muscle [ ] Tendon [ ] Bone [ ] Escharectomy [ ] Other procedure diagnosis [ ] Unable to determine For continuity of documentation, please document condition throughout progress notes and discharge summary. Thank You. CLINICAL INDICATORS - SIGNS / SYMPTOMS / LABS EDWIGE CONSULT 11-06-17: HX OF IV HEROIN AND COCAINE INJECTION WHO DEVELOPED AREA OF INFLAMMATORY CHANGE AT RIGHT HAND RING FINGER AT THE DORSAL ASPECT OF THE PROXIMAL INTERPHARALGEAL JOINT SKIN SITE, APPARENTLY, THE PATIENT IS GOING FOR SURGICAL DEBRIDEMENT SOON. PROCEDURE 11-06-17: INCISION AND DRAINAGE OF RIGHT RING FINGER, DORSAL. PROCEDURE: 11-06-17: 4MM ROUND AREA OF MILDLY NECROTIC SKIN. THIS WAS SHARPLY EXCISED INCLUDING SKIN AND SUBCUTANEOUS TISSUE USING A SCALPEL. ONCE EXCISED, SOME SUBCUTANEOUS FAT WAS FURTHER DEBRIDED USING A SMALL RONGEUR. RISK FACTORS: EDWIGE CONSULT 11-06-17: HX OF IV HEROIN AND COCAINE INJECTION WHO DEVELOPED AREA OF INFLAMMATORY CHANGE AT RIGHT HAND RING FINGER AT THE DORSAL ASPECT OF THE PROXIMAL INTERPHARALGEAL JOINT SKIN SITE, TREATMENTS:PROCEDURE 11-06-17: INCISION AND DRAINAGE OF RIGHT RING FINGER, DORSAL. THANK YOU, GHASSAN (This form is maintained as a part of the permanent medical record) 2015 [employer]. All Rights Reserved PAT [email or web address] Office: [phone] DOLLY
== END 2017-11-09 13:33 | DRG 603 ==
LOC: ERS 19:47 → SURG B 11-05 00:25
PROVIDERS: ADMIT Orthopaedic Surgery; ATTEND Orthopaedic Surgery
PROC: 0H9FXZZ Drainage of Right Hand Skin, External Approach (ICD-10-PCS; principal; 2017-11-06)
DX: L03.011 Cellulitis of right finger (principal); N17.9 Acute kidney failure, unspecified; M62.82 Rhabdomyolysis; F17.210 Nicotine dependence, cigarettes, uncomplicated; F12.10 Cannabis abuse, uncomplicated; E87.6 Hypokalemia; B95.62 Methicillin resistant Staphylococcus aureus infection as the cause of diseases classified elsewhere
CPT/HCPCS: 36415; 80048; 80053; 80202; 81001; 82550; 83605; 83735; 85025; 85610; 85730; 86803; 86850; 86900; 86901; 87040; 87070; 87077; 87149; 87186; 87205; 87389; 93306; 96365; 96366; 99406; A4216; J1100; J1200; J1885; J2001; J2250; J2543; J2704; J3010; J3370; J7050; S0020

== ENCOUNTER 2019-01-07 15:46 | Emergency (ER) | payer OTHER ==
[2019-01-07] MEDS ORDERED: Adacel (T-DAP) 0.5 ML SYRINGE ONE (16:15)
[2019-01-07] MEDS ORDERED: Lidocaine 1% PF 5 ML VIAL ONE (16:37)
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
[2019-01-07] MEDS ORDERED: Ketorolac Tromethamine 30 MG/ML VIAL ONE (17:30)
[2019-01-07] MEDS ORDERED: Bacitracin Zinc 1 Packet ONE (17:42)
== END 2019-01-07 17:50 | disposition home or self-care (01) ==
LOC: SCSER 15:46
DX: S92.514A Nondisplaced fracture of proximal phalanx of right lesser toe(s), initial encounter for closed fracture (principal); S01.412A Laceration without foreign body of left cheek and temporomandibular area, initial encounter; F17.210 Nicotine dependence, cigarettes, uncomplicated; Y04.0XXA Assault by unarmed brawl or fight, initial encounter
CPT/HCPCS: 12011; 70450; 90471; 90715; 96372; J1885; J2001

== ENCOUNTER 2019-11-08 01:08 | Emergency (ER) | payer OTHER, SELFPAY ==
[2019-11-08] MEDS ORDERED: Ondansetron PF 4 MG/2 ML Vial ONE (01:16)
[2019-11-08] MEDS ORDERED: Naloxone HCl 0.4 mg/ml Vial ONE (01:16)
== END 2019-11-08 02:55 | disposition left against medical advice (07) ==
LOC: ERS 01:08
DX: R41.82 Altered mental status, unspecified (principal); F17.210 Nicotine dependence, cigarettes, uncomplicated
CPT/HCPCS: 93005; 96361; 96374; 96375; J2310; J2405